=== PATIENT | female | born 1955 | race African-American/Black ===

== ENCOUNTER → 2019-07-01 | Outpatient (CLI) | payer OTHER ==
[~2019-07-01] MED LIST: NORCO 5-325 TA1 EACH PO; SENNA-DOCUSATE1 EACH PO; VALTREX 500 MG500 M1 PO
== END ==
LOC: CAT 10:12
DX: Z13.6 Encounter for screening for cardiovascular disorders (principal); E78.00 Pure hypercholesterolemia, unspecified; I25.10 Atherosclerotic heart disease of native coronary artery without angina pectoris